=== PATIENT | female | born 1930 | race American Indian/Alaskan Native ===

== ENCOUNTER 2017-07-04 10:48 | Outpatient (CLI) | payer MEDICARE ==
--- NOTE | 2017-07-04 14:08 | Magnetic Resonance Report ---
MRI scan of brain: History: Memory loss. Technique: Multiplanar, multisequence images were obtained without contrast injection. Findings: No evidence of restricted diffusion. Ventricles are midline in location and normal in size. Periventricular area hyperintensity noted with areas of hyperintensity in the subcortical region. Evidence of chronic ischemic foci in the left cerebellum. No extra-axial fluid collection. No acute ischemia or hemorrhage. No mass. Impression: Chronic ischemic changes left cerebellum. Small vessel ischemic changes. No acute intracranial abnormality.
== END 2017-07-04 10:49 | disposition home or self-care (01) ==
LOC: MRI 10:48
PROVIDERS: ATTEND Psychiatry & Neurology Neurology
DX: R41.3 Other amnesia (principal)
CPT/HCPCS: 36415; 70551; 82565; 84520